=== PATIENT | female | born 1990 | race Caucasian/White ===

== ENCOUNTER 2018-09-10 12:37 | Emergency (ER) | payer OTHER ==
--- NOTE | 2018-09-10 16:01 | ED ---
Abdominal Pain/Female - HPI Summary HPI Summary: Pt is a 28 y/o F presenting from [facility] to [facility] with a CC of abdominal pain which is located in her suprapubic region and is rated a 3/10 in severity. The pain started on 09/01/18 and has been in her lower abdominal region. She states that the pain is a dull and achy and that she is suffering from bloating and swelling around that region. She states that the symptoms have increased today. She was supposed to see her PCP in september but could not wait any longer. She denies any N/V/D, urinary issues, fever, BM issues, decrease in appetite, and headaches. She has no aggravating or alleviating symptoms. She states that she has had similar symptoms which was an ovarian cyst but states that they did not hurt this much. She reports no period for 2 years due to Radha IUD. - History of Current Complaint Chief Complaint: EDAbdPain Stated Complaint: ABD PAIN PER PT Time Seen by Provider: 09/10/18 15:46 Hx Obtained From: Patient ?: No - IUD Onset/Duration: Sudden Onset, Lasting Weeks - 1, Still Present, Worse Since Timing: Constant Severity Initially: Mild Severity Currently: Moderate Pain Intensity: 5 Pain Scale Used: 0-10 Numeric Location: Suprapubic Radiates: No Character: Dull, Other: - achy Aggravating Factor(s): Nothing Alleviating Factor(s): Nothing Associated Signs and Symptoms: Positive: Negative - headaches, BM issues, Other : - abominal pain in her suprapubic region. Negative: Fever, Urinary Symptoms, Nausea, Vomiting, Diarrhea Allergies/Adverse Reactions: Allergies Allergy/AdvReac Type Severity Reaction Status Date / Time cefaclor [From [facility]] Allergy Unknown Verified 09/10/18 12:48 Reaction Details Penicillins Allergy Unknown Verified 09/10/18 12:48 Reaction Details Home Medications: Home Medications NK [No Home Medications Reported] 09/10/18 [History Confirmed 09/10/18] PMH/Surg Hx/FS Hx/Imm Hx Previously Healthy: No Endocrine/Hematology History: Denies: Hx Diabetes Cardiovascular History: Denies: Hx Hypertension Respiratory History: Reports: Hx Asthma History: Reports: Other Problems/Disorders - Ovarian cysts Neurological History: Reports: Hx Migraine - Surgical History Surgical History: Yes Surgery Procedure, Year, and Place: lateral release on both knees 2004. wisdom teeth 2004. Vocal cords 2017 - Immunization History Immunizations Up to Date: Yes Infectious Disease History: No Infectious Disease History: Denies: Traveled Outside the [place] in Last 30 Days - Family History Known Family History: Positive: Other - cancer paternal grandfather Negative: Cardiac Disease, Hypertension - Social History Occupation: Employed Full-time Lives: With Family - boyfriend Alcohol Use: Occasionally Hx Substance Use: No Substance Use Type: Reports: None Hx Tobacco Use: No Smoking Status (MU): Never Smoked Tobacco Review of Systems Negative: Fever Positive: Abdominal Pain - suprapubic. Negative: Vomiting, Diarrhea, Nausea Genitourinary: Negative - BM issues, urinary issues Negative: Headache All Other Systems Reviewed And Are Negative: Yes Physical Exam - Summary Physical Exam Summary: Appearance: Well-appearing, Well-nourished, lying in bed comfortably Skin: Warm, dry, no obvious rash Eyes: sclera anicteric, no conjunctival pallor ENT: mucous membranes moist, pharynx appears normal Neck: Supple, nontender Respiratory: Clear to auscultation, no signs of respiratory distress Cardiovascular: Normal S1, S2. No murmurs. Normal distal pulses in tibial and radial bilaterally. Abdomen: Soft, R lower abdomen tenderness without peritoneal signs, normal active bowel sounds present Musculoskeletal: Normal, Strength/ROM Intact Neurological: A&Ox3, awake and alert, mentation is normal, speech is fluent and appropriate Psychiatric: affect is normal, does not appear anxious or depressed Triage Information Reviewed: Yes Vital Signs On Initial Exam: Initial Vitals Temp Pulse Resp BP Pulse Ox 98.3 F 79 16 143/82 99 09/10/18 12:46 09/10/18 12:46 09/10/18 12:46 09/10/18 12:46 09/10/18 12:46 Vital Signs Reviewed: Yes Diagnostics - Vital Signs Vital Signs Temp Pulse Resp BP Pulse Ox 09/10/18 15:17 98.4 F 64 16 112/70 98 09/10/18 12:46 98.3 F 79 16 143/82 99 - Laboratory Result Diagrams: 09/10/18 16:09 09/10/18 16:09 Lab Statement: Any lab studies that have been ordered have been reviewed, and results considered in the medical decision making process. - Ultrasound Transvaginal US Ultrasound Interpretation Completed By: Radiologist Summary of Ultrasound Findings: 1. AN IUD IS NOTED CENTRALLY WITHIN THE ENDOMETRIAL CAVITY TOWARDS THE FUNDUS. 2. NO SONOGRAPHIC FEATURES OF TORSION. PLEASE NOTE THAT PARTIAL OR INTERMITTENT TORSION. MAY BE SONOGRAPHICALLY NORMAL. 3. SMALL AMOUNT OF FREE FLUID WITHIN THE PELVIS. THIS MAY BE PHYSIOLOGIC WITH IN A REPRODUCTIVE AGE FEMALE. ED physician has reviewed this report. Re-Evaluation - Re-Evaluation First Eval Re-Evaluation Time: 18:25 Change: Unchanged Comment: The patient's abdominal exam remains benign with no focal tenderness, particularly no tenderness in the right lower quadrant. Her workup here does not show any signs of acute inflammation within normal white blood cell count and C-reactive protein. Her pelvic ultrasound is essentially normal with only a small amount of free pelvic fluid. There are no signs of ovarian torsion or tumors. The exact diagnosis of her discomfort is not entirely clear but I do not believe there is anything emergent. In particular, I don't believe this represents acute appendicitis. The patient is comfortable with this explanation and is amenable to going home and following up with her PCP. Abdominal Pain Fem Course/Dx - Course Course Of Treatment: Pt is a 28 y/o F presenting from [facility] to [facility] with a CC of abdominal pain which is located below her periumbilical and above her suprapubic region and is rated a 3/10 in severity. The pain started on 09/01/18 and has been in her lower abdominal region. She states that the pain is a dull and achy and that she is suffering from bloating and swelling around that region. Her PE shows R lower abdomen tenderness without peritoneal signs. She had a transvaginal US which shows 1. AN IUD IS NOTED CENTRALLY WITHIN THE ENDOMETRIAL CAVITY TOWARDS THE FUNDUS. 2. NO SONOGRAPHIC FEATURES OF TORSION. PLEASE NOTE THAT PARTIAL OR INTERMITTENT TORSION MAY BE SONOGRAPHICALLY NORMAL. 3. SMALL AMOUNT OF FREE FLUID WITHIN THE PELVIS. THIS MAY BE PHYSIOLOGIC WITH IN A REPRODUCTIVE AGE FEMALE. Her labratory values show no abnormal values. She will be discharged with a Dx of acute abdominal pain due to no abnormal findings during her ED course. She will be instructed to follow up with her PCP when she visits him in September. - Diagnoses Provider Diagnoses: Acute abdominal pain Discharge - Sign-Out/Discharge Documenting (check all that apply): Patient Departure Patient Received Moderate/Deep Sedation with Procedure: No - Discharge Plan Condition: Good Disposition: HOME Patient Education Materials: Acute Abdominal Pain (ED) Referrals: No Primary Care Phys,NOPCP [Primary Care Provider] - Additional Instructions: Followup with your PCP as scheduled. I suspect this is going to log turner to be a gynecologic issue but do not have any signs that there is an acute emergent problem such as appendicitis. - Billing Disposition and Condition Condition: GOOD Disposition: Home - Attestation Statements Document Initiated by Svetlana: Yes Documenting Scribe: Gio Pringle Provider For Whom Svetlana is Documenting (Include Credential): Nakul Whitmore MD Scribe Attestation: IGio, scribed for Nakul Whitmore MD on 09/12/18 at 0539. Scribe Documentation Reviewed: Yes Provider Attestation: The documentation as recorded by the Gio christian accurately reflects the service I personally performed and the decisions made by me, Nakul Whitmore MD Status of Scribe Document: Viewed
[2018-09-10 16:37] LABS: ABS Eosinophils 0.1 10^3/ul (0-0.6); ABS Lymphocytes 2.7 10^3/ul (1.0-4.8); ABS Monocytes 0.3 10^3/ul (0-0.8); ABS Neutrophils 4.1 10^3/ul (1.5-7.7); Eosinophil % 1.4 %; Hematocrit 36 % (35-47); Hemoglobin 12.1 g/dL (12.0-16.0); Lymphocyte % 36.9 %; Mean Corpuscular HGB Conc 34 g/dL (31-36); Mean Corpuscular Hemoglobin 31 pg (27-31); Mean Corpuscular Volume 92 fL (80-97); Mean Platelet Volume 8.3 fL (7.4-10.4); Nucleated Red Blood Cells % 0.1; Platelet Count 309 10^3/uL (150-450); Red Cell Distribution Width 12 % (10-15); White Blood Count 7.3 10^3/uL (3.5-10.8)
[2018-09-10 16:55] LABS: ALT 8 U/L (7-52); AST 12 U/L (13-39); Albumin 4.4 g/dL (3.2-5.2); Albumin/Globulin Ratio 1.8 (1-3); Alkaline Phosphatase 43 U/L (34-104); Anion Gap 6 mmol/L (2-11); BUN/Creatinine Ratio 17.7 (8-20); Blood Urea Nitrogen 14 mg/dL (6-24); C Reactive Protein < 1.00 mg/L (<8.01); CO2 Carbon Dioxide 25 mmol/L (22-32); Calcium 9.3 mg/dL (8.6-10.3); Chloride 106 mmol/L (101-111); EGFR African American 104.1 (>60); Globulin 2.5 g/dL (2-4); Glucose 85 mg/dL (70-100); Potassium 3.6 mmol/L (3.5-5.0); Sodium 137 mmol/L (135-145); Total Protein 6.9 g/dL (6.4-8.9)
[2018-09-10 17:01] LABS: HCG Pregnancy < 0.60 mIU/mL
[2018-09-10 17:54] LABS: Urine Appearance Clear; Urine Bilirubin Negative (Negative); Urine Blood Negative (Negative); Urine Color Yellow; Urine Glucose Negative (Negative); Urine Ketones 1+ (Negative); Urine Nitrite Negative (Negative); Urine Protein Negative (Negative); Urine Specific Gravity 1.014 (1.010-1.030); Urine Urobilinogen Negative (Negative)
[2018-09-10 18:38] VITALS: BP 113/92
== END 2018-09-10 18:35 | disposition home or self-care (01) ==
LOC: ED 12:37
DX: R10.30 Lower abdominal pain, unspecified (principal); Z88.0 Allergy status to penicillin
CPT/HCPCS: 36415; 76830; 80053; 81003; 83690; 84702; 85025; 86140; 99282

== ENCOUNTER 2019-04-17 15:59 | Emergency (ER) | payer SELFPAY ==
--- NOTE | 2019-04-17 18:01 | ED ---
Head Injury - HPI Summary HPI Summary: 29-year-old female with significant past medical history of asthma presents to the emergency department today complaining of head pain after hitting her head on a lead pipe while at work approximately 2 hours ago. Patient states she was bent over and set up too quickly which caused her to have red on the pipe. Patient has associated headache and "blurred vision". Patient denies loss of consciousness or amnesia. Patient has full range of motion and has no neurological deficits. Patient has no nausea. Patient denies fever, chills, abdominal pain from urination, rash. Patient is not on blood thinners and has no bleeding disorders. Patient has no family medical history of subarachnoid hemorrhage or intracranial bleeds. Patient denies "worst headache of my life". - History Of Current Complaint Chief Complaint: EDHeadInjury Stated Complaint: HEAD INJURY PER PT Time Seen by Provider: 04/17/19 17:25 Hx Obtained From: Patient Mechanism Of Injury: Blunt Trauma Onset/Duration: Started Hours Ago Onset of Pain: Immediate Severity Currently: Mild Severity Initially: Mild Pain Intensity: 2 Pain Scale Used: 0-10 Numeric Location of Head Injury: Parietal Character: Throbbing Associated Signs And Symptoms: Nausea, Headache, Visual Changes - Allergies/Home Medications Allergies/Adverse Reactions: Allergies Allergy/AdvReac Type Severity Reaction Status Date / Time cefaclor [From Ceclor] Allergy Unknown Verified 09/10/18 12:48 Reaction Details Penicillins Allergy Unknown Verified 04/17/19 16:01 Reaction Details PMH/Surg Hx/FS Hx/Imm Hx Endocrine/Hematology History: Denies: Hx Diabetes Cardiovascular History: Denies: Hx Hypertension Respiratory History: Reports: Hx Asthma History: Reports: Other Problems/Disorders - Ovarian cysts Neurological History: Reports: Hx Migraine - Surgical History Surgery Procedure, Year, and Place: lateral release on both knees 2004. wisdom teeth 2004. Vocal cords 2017 - Immunization History Date of Influenza Vaccine: 11/2018 Infectious Disease History: No Infectious Disease History: Denies: Traveled Outside the [place] in Last 30 Days - Family History Known Family History: Positive: Other - cancer paternal grandfather Negative: Cardiac Disease, Hypertension - Social History Alcohol Use: Occasionally Hx Substance Use: No Substance Use Type: Reports: None Hx Tobacco Use: No Smoking Status (MU): Never Smoked Tobacco Review of Systems Constitutional: Negative Eyes: Negative ENT: Negative Cardiovascular: Negative Respiratory: Negative Gastrointestinal: Negative Genitourinary: Negative Musculoskeletal: Negative Skin: Negative Positive: Headache Psychological: Normal All Other Systems Reviewed And Are Negative: Yes Physical Exam - Summary Physical Exam Summary: Patient is in no acute distress. PERRLA, EOMI. Patient has no tenderness with palpation in the midline spine. Patient has full range of motion of the neck. Patient has no tenderness with palpation of the scalp or facial bones. No obvious deformity or ecchymosis or erythema. No lacerations noted. Triage Information Reviewed: Yes Vital Signs On Initial Exam: Initial Vitals Temp Pulse Resp BP Pulse Ox 98.0 F 77 16 155/89 100 04/17/19 16:01 04/17/19 16:01 04/17/19 16:01 04/17/19 16:01 04/17/19 16:01 Vital Signs Reviewed: Yes Appearance: Positive: Well-Appearing, No Pain Distress, Well-Nourished Skin: Positive: Warm, Skin Color Reflects Adequate Perfusion Eyes: Positive: EOMI, THERESE ENT: Positive: Hearing grossly normal Respiratory/Lung Sounds: Positive: Clear to Auscultation, Breath Sounds Present Cardiovascular: Positive: RRR, S1, S2 Musculoskeletal: Positive: Strength/ROM Intact Neurological: Positive: Sensory/Motor Intact, Alert, Oriented to Person Place, Time, Normal Gait, Speech Normal Psychiatric: Positive: Normal, Affect/Mood Appropriate AVPU Assessment: Alert Procedures - Sedation Patient Received Moderate/Deep Sedation with Procedure: No Diagnostics - Vital Signs Vital Signs Temp Pulse Resp BP Pulse Ox 04/17/19 16:01 98.0 F 77 16 155/89 100 - Laboratory Lab Statement: Any lab studies that have been ordered have been reviewed, and results considered in the medical decision making process. Head Injury Course/Dx Course Of Treatment: Patient evaluated for head injury. Vitals noted. Immediate head CT rules negative. No radiologic evaluation needed. Patient has no neurological deficits and has no complaints at this time. It is likely patient suffered a mild concussion. Patient discharged with outpatient follow- up. - Diagnoses Differential Diagnosis/HQI/PQRI: Concussion Without LOC, Contusion, Intracranial Bleed, Skull Fracture Provider Diagnoses: Headache Discharge ED - Sign-Out/Discharge Documenting (check all that apply): Patient Departure - Discharge Plan Condition: Stable Disposition: HOME Patient Education Materials: Concussion (ED) Referrals: [facility] [Outside] - 3 Days No Primary Care Phys,NOPCP [Primary Care Provider] - Additional Instructions: It appears you did not sustain any significant bony trauma from your accident today. It is likely a mild concussion. Please take ibuprofen 600 mg every 6 hours as needed for pain. Please follow-up with [facility] in 3 days for further evaluation and management. Please return to the emergency department immediately if you develop any new or worsening symptoms. - Billing Disposition and Condition Condition: STABLE Disposition: Home
[2019-04-17 18:19] VITALS: BP 113/73
== END 2019-04-17 18:18 | disposition home or self-care (01) ==
LOC: ED 15:59
DX: R51 Headache (principal); R11.0 Nausea; H53.8 Other visual disturbances; Z88.1 Allergy status to other antibiotic agents; Z88.0 Allergy status to penicillin
CPT/HCPCS: 99281